=== PATIENT | male | born 1930 | race Asian ===

== ENCOUNTER 2016-12-23 11:40 | Day surgery (SDC) | payer MEDICARE ==
[2016-12-16 11:11] LABS: BASOPHILS 0.5 %; BASOPHILS ABSOLUTE 0.03 10/3/uL (0.0-0.16); EOSINOPHILS 5.1 %; EOSINOPHILS ABSOLUTE 0.31 10/3/uL (0.0-0.53); HEMOGLOBIN 13.6 g/dL (13.6-17.8); IMMATURE GRANULOCYTES 0.2 %; IMMATURE GRANULOCYTES ABSOLUTE 0.01 10/3/uL (0.0-0.11); LYMPHOCYTES 44.2 %; LYMPHOCYTES ABSOLUTE 2.69 10/3/uL (0.67-4.30); MEAN CORPUS HGB CONC 32.5 g/dL (32.0-36.0); MEAN CORPUSCULAR HEMOGLOB 28.5 pg (26.0-34.0); MEAN CORPUSCULAR VOLUME 87.4 fL (80-100); MEAN PLATELET VOLUME 8.8 fL (9.2-13.0); MONOCYTES 6.3 %; MONOCYTES ABSOLUTE 0.38 10/3/uL (0.21-1.20); NEUTROPHILS 43.7 %; NEUTROPHILS ABSOLUTE 2.66 10/3/uL (2.02-8.40); PLATELET COUNT 234 10/3/uL (150-400); RED CELL COUNT 4.78 10/6/uL (4.7-6.1); WHITE BLOOD CELLS 6.1 10/3/uL (4.5-10.5)
[2016-12-16 11:17] LABS: HEMATOCRIT 41.8 % (40.0-51.0); MANUAL DIFF NO %
[2016-12-16 11:30] LABS: CALCIUM, SERUM 9.2 MG/DL (8.5-10.4); CHLORIDE, SERUM 111 MMOL/L (96-112); CO2 (CARBON DIOXIDE) 27 MMOL/L (24-34); CREATININE 1.08 MG/DL (0.70-1.30); GFR AFRICAN AMERICAN 73 ML/MIN (>=60); GFR NON AFRICAN AMERICAN 63 ML/MIN (>=60); GLUCOSE, SERUM 92 MG/DL (60-99); POTASSIUM, SERUM 4.1 MMOL/L (3.5-5.3); SODIUM, SERUM 144 MMOL/L (135-148)
[2016-12-16 11:31] LABS: BUN (BLOOD UREA NITROGEN) 20 MG/DL (6-23)
[2016-12-16 12:11] LABS: ASCORBIC ACID (UR NOT ORDER) NEG (NEG); BILIRUBIN, URINE NEGATIVE (NEG); KETONE, URINE NEGATIVE (NEG); LEUKOCYTE ESTERASE(NOT OR NEG (NEG); WBC (NOT ORDERED) (RFLEX) 3 (0-5)
--- NOTE | ~2016-12-23 | OP ---
Record Of Operation [facility] [address] [place]. 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 PROCEDURE: Cystoscopy, transurethral resection at erythematous area distal to the left renal orifice, urethral stricture dilation, placement of Quiñones catheter, bilateral retrograde pyelograms, bilateral ureteral washings, biopsies, and fulguration of lesions. ANESTHESIA: General. SPECIMENS: 1. Right ureteral washings for cytology. 2. Left ureteral washings for cytology. 3. Bladder mass. DRAINS: 18-Congolese Councill catheter to leg bag drainage. ESTIMATED BLOOD LOSS: 20 mL. COMPLICATIONS: A small false passage during dilation with Catherine sounds of his urethral stricture. DISPOSITION: Extubated to recovery room with plans to place mitomycin C in phase 2. HISTORY: This is an 86-year-old man with the above-stated problems, who presents for the above-stated procedure. PROCEDURE IN DETAIL: After consent was obtained, the patient was taken to the operating room and placed on the operative table in supine position. General anesthetic was induced. The patient was then placed in the dorsal lithotomy position with perineum prepped and draped in the usual sterile fashion. Examination under anesthesia reveals normal external genitalia. 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 Cystourethroscopy showed a nonphysiologic stricture in the membranous urethra that was able to be bypassed easily with the 20-degree sheath and 30-degree lens. Once in the bladder, the bladder was systematically evaluated with 30- and 70-degree lens. Both ureteral orifices were seen with clear efflux. His left ureteral orifice had previously been resected. He had a small regrowth of mucosa below his left ureteral orifice that was smooth, but slightly erythematous. Distal to his left ureteral orifice was the erythematous area previously described at his office note. There were some irregularities as it reached closer to his bladder neck. No definitive masses were noted, however. We attempted to cannulate his right ureteral orifice with the open-ended, but his right ureteral orifice was Record Of Operation [place] [id number] [facility] [place]. [address] NAME: CORINNA DUFFY : 34 STATUS : [facility]#: [id number] AGE: 86 ADM/REG DATE : 12/23/16 MR#: [id number] REPORT SERV DATE: 12/23/16 DICTATED BY: BRYNN EPPS DATE: 12/23/16 REPORT STATUS : Draft TRANSCRIBED BY: ZEYNEP DATE: 12/23/16 lore. A 0.38 Bentson guidewire was passed and then the open-ended was passed over the Bentson guidewire into his distal right ureter. The open-ended was then passed up into the region of the kidney and washings were taken from his right renal pelvis. These were then sent to cytology. The open-ended was then removed. We then used a separate open-ended and syringe to cannulate his left ureteral orifice up to his kidney. Washings were then taken of the pelvis and the ureter, and these were sent to Pathology for cytology. In his mid ureter, we then injected his left collecting system with half of IV contrast. This did show a slightly dilated collecting system, but no filling defects were noted. We backed down his ureter and shot another retrograde showing normal caliber ureter without filling defects. When we removed the open-ended on that side, copious efflux was then noted. Retrograde pyelogram was then performed on the right side. Normal caliber ureter with slightly dilated collecting system was seen. No filling defects were noted. These pictures were sent to Radiology for official reading. His bladder was drained and attention was then paid to the bladder. The biopsy forceps were placed, but it was noted that the area in question was so close to the bladder neck, we would be unable to see where the biopsy forceps were located if biopsies alone were taken. For that reason, the resectoscope was attempted to be passed. This was unable to be passed due to his stricture. Resectoscope was removed and the Catherine sounds were used to dilate his urethra to 28-Congolese. We then attempted to pass the resectoscope, but we were unable to pass this into the bladder. We passed the cystoscope and saw there was a false passage below the strictured area. We were able to negotiate into his bladder. The area below the left ureteral orifice was resected in its entirety. Ellik evacuator was used to evacuate all of the chips. The biopsy forceps were used to take biopsies of the area closest to the left ureteral orifice and the Bugbee was used to cauterize this area. Efflux was seen from the left ureteral orifice when we were finished. Good hemostasis was seen. A wire was passed through the sheath and the sheath was removed. The 18 Councill was passed over the wire into the bladder without any difficulty. The balloon was inflated with 10 mL of sterile water and this was seated at the bladder neck. It irrigated easily pink urine. This was placed to bag drainage. A B and O suppository was then passed into the rectum for comfort during the mitomycin treatment. The patient was awakened from his anesthetic, extubated, and taken to recovery room in good condition. Plan will be to have him undergo mitomycin here and send him home with the catheter in place. He may follow up in 7 to 10 days for pathology results and catheter removal. He was sent home with Cipro 250 b.i.d. for four days, Pyridium to take three times a day as scheduled, and oxybutynin to take every eight hours as needed. YUE/NANYL Brynn Epps M.D. / [id number] CC: Karey Mckinney M.D.
[~2016-12-23 11:40] MED LIST: ARICEPT10 PO; LEVOTHYROXIN50 MCG PO; MULTIVIT/MIN PO; PRAVAC PO; PROSCAR5 PO; TRICOR145 PO
== END 2016-12-23 18:50 | disposition home or self-care (01) ==
LOC: SDC 11:40
PROVIDERS: Urology
PROC: 0T7D8ZZ Dilation of Urethra, Via Natural or Artificial Opening Endoscopic (ICD-10-PCS; 2016-12-23)
PROC: BT14ZZZ Fluoroscopy of Kidneys, Ureters and Bladder (ICD-10-PCS; 2016-12-23)
PROC: 0TBB8ZZ Excision of Bladder, Via Natural or Artificial Opening Endoscopic (ICD-10-PCS; 2016-12-23)
PROC: 0TB78ZX Excision of Left Ureter, Via Natural or Artificial Opening Endoscopic, Diagnostic (ICD-10-PCS; principal; 2016-12-23 13:15)
PROC: 0TB68ZX Excision of Right Ureter, Via Natural or Artificial Opening Endoscopic, Diagnostic (ICD-10-PCS; 2016-12-23 13:15)
DX: C67.9 Malignant neoplasm of bladder, unspecified (principal); N35.9 Urethral stricture, unspecified; E03.9 Hypothyroidism, unspecified; E78.5 Hyperlipidemia, unspecified; F03.90 Unspecified dementia, unspecified severity, without behavioral disturbance, psychotic disturbance, mood disturbance, and anxiety; E78.00 Pure hypercholesterolemia, unspecified; M19.90 Unspecified osteoarthritis, unspecified site; Z85.51 Personal history of malignant neoplasm of bladder; Z87.442 Personal history of urinary calculi; Z98.890 Other specified postprocedural states
CPT/HCPCS: 74420; 80048; 81001; 85025; 88112; 88307; 88342; 93005; A9270-GY; C1758; C1769; J2405; J3010; J9280; Q9967